=== PATIENT | male | born 1935 | race American Indian/Alaskan Native ===

== ENCOUNTER 2018-08-14 09:54 | Emergency (ER) | payer MEDICARE, OTHER ==
[2018-08-14] MEDS ORDERED: CALCIUM CHLORIDE IV ONE (09:55)
[2018-08-14] MEDS ORDERED: ADRENALINE P/F ONE (09:55)
--- NOTE | 2018-08-14 10:22 | Emergency Department Report ---
ED CPR HPI - General Stated Complaint: CARDIAC ARREST Time Seen by Provider: 08/14/18 10:17 - History of Present Illness Initial Comments: 83-year-old male presents to the ED from custodial in cardiac arrest. EMS was called for consult mental status possibly following a seizure. Patient has history of seizures. Patient on staff. The patient had a seizure, however that was not witnessed. Upon EMS arrival, patient had agonal breathing and no pulse. Patient was then intubated, ACLS was initiated. Initial rhythm of PEA. Patient did have an episode of V. fib which was shocked. The patient to return to PEA. Patient was given a total of epinephrine 3, sodium bicarbonate 1. The patient in care of EMS for approximately 25 minutes. Patient arrives to the ED in continued arrest. MD Complaint: found unresponsive Place: NH/SNF Bystander CPR Performed: No Initial Findings in the Field: unresponsive, agonal, no pulse, PEA ROSC in the Field: No Associated Symptoms: other (unknown) Treatments Prior to Arrival: intubation, chest compressions, defribrillated shocks # (1), epinephrine mgs # (3), sodium bicarbonate (x1 amp) - Related Data Home Medications Medication Instructions Recorded Confirmed Last Taken Lacosamide [Vimpat] 100 mg PO Q12HR 03/19/18 03/19/18 Unknown Vit B Comp/C/Folic/Iron/Vit E 1 each PO DAILY 03/19/18 03/19/18 Unknown [Vitamin B Complex Tablet] dilTIAZem [Cardizem] 90 mg PO Q6H 03/19/18 03/19/18 Unknown Previous Rx's Medication Instructions Recorded Last Taken Type levoFLOXacin [Levaquin TAB] 500 mg PO QDAY #3 tablet 03/23/18 Unknown Rx Allergies Allergy/AdvReac Type Severity Reaction Status Date / Time No Known Allergies Allergy Unverified 03/19/18 15:09 ED Review of Systems ROS: Stated complaint: CARDIAC ARREST Other details as noted in HPI Comment: Unobtainable due to pts medical conditions (cardiac arrest) ED Past Medical Hx - Past Medical History Hx Hypertension: Yes Hx Heart Attack/AMI: Yes Hx Seizures: Yes - Surgical History Additional Surgical History: left LE, right skull - Social History Smoking Status: Former Smoker - Medications Home Medications: Home Medications Medication Instructions Recorded Confirmed Last Taken Type Lacosamide [Vimpat] 100 mg PO Q12HR 03/19/18 03/19/18 Unknown History Vit B Comp/C/Folic/Iron/Vit E 1 each PO DAILY 03/19/18 03/19/18 Unknown History [Vitamin B Complex Tablet] dilTIAZem [Cardizem] 90 mg PO Q6H 03/19/18 03/19/18 Unknown History levoFLOXacin [Levaquin TAB] 500 mg PO QDAY #3 tablet 03/23/18 Unknown Rx ED Physical Exam - Head Head exam: Present: atraumatic, normocephalic - Eye Eye exam: Present: normal appearance - ENT ENT exam: Present: other (ET tube present w/ blood in tube) - Respiratory Respiratory exam: Present: decreased breath sounds - Cardiovascular Cardiovascular Exam: Present: other (no palpable pulse) - GI/Abdominal GI/Abdominal exam: Present: soft. Absent: distended - Extremities Exam Extremities exam: Present: normal inspection - Neurological Exam Neurological exam: Present: other (GCS= 3) - Skin Skin exam: Present: warm, dry, intact, normal color ED Medical Decision Making - Medical Decision Making 83-year-old male presented in cardiac arrest from custodial. Patient had one episode of Vfib with EMS, however was otherwise in PEA. Down for 25 minutes in EMS care. Here in ED patient given epinephrine, sodium bicarbonate, calcium chloride. There was blood present in ET tube, however O2 sats were in the 90s. Code was run according to ACLS guidelines, however, unable to obtain return of spontaneous circulation. Patient remained in PEA, and time of was called at 10:09. Please see nurse's note for code details. - Differential Diagnosis arrythmia, PE, CVA Critical care attestation.: If time is entered above; I have spent that time in minutes in the direct care of this critically ill patient, excluding procedure time. ED Disposition Clinical Impression: Cardiac arrest Disposition: [id number] Is pt being admited?: No Time of Disposition: 10:22
== END 2018-08-14 13:16 ==
LOC: ED 09:54
DX: I46.9 Cardiac arrest, cause unspecified (principal); I10 Essential (primary) hypertension; I25.2 Old myocardial infarction; Z87.891 Personal history of nicotine dependence
CPT/HCPCS: 92950; 99285; J0171